=== PATIENT | female | born 1990 | race American Indian/Alaskan Native ===

== ENCOUNTER 2017-09-29 19:09 | Emergency (ER) | payer SELFPAY ==
[2017-09-29 20:12] VITALS: BP 107/73
[2017-09-29] MEDS ORDERED: NACL 0.9% 1000 ML 1,000 ML IV ONE (20:13)
[2017-09-29 20:41] LABS: Basophils % (Auto) 0.8 % (0.0-1.8); Eosinophils % (Auto) 0.8 % (0.0-4.3); Hematocrit 38.1 % (30.3-42.9); Hemoglobin 12.6 gm/dl (10.1-14.3); Lymphocytes # (Auto) 1.1 K/mm3 (1.2-5.4); Mean Corpuscular HGB Conc 33 % (30-34); Mean Corpuscular Hemoglobin 28 pg (28-32); Mean Corpuscular Volume 85 fl (79-97); Monocytes # (Auto) 0.3 K/mm3 (0.0-0.8); Monocytes % (Auto) 10.2 % (0.0-7.3); Platelet Count 322 K/mm3 (140-440); Red Blood Count 4.48 M/mm3 (3.65-5.03); Red Cell Distribution Width 13.3 % (13.2-15.2)
[2017-09-29 20:55] LABS: Alanine Aminotransferase 16 units/L (7-56); Albumin 4.4 g/dL (3.9-5); BUN/Creatinine Ratio 17; Blood Urea Nitrogen 10 mg/dL (7-17); Calcium 9.3 mg/dL (8.4-10.2); Hemolysis Index 14; Lipase 14 units/L (13-60)
[2017-09-29 23:32] LABS: Bilirubin,Urine NEG (Negative); Blood,Urine NEG (Negative); Color,Urine Amber (Yellow); Mucus,Urine 3+ /HPF
== END 2017-09-29 22:25 | disposition left against medical advice (07) ==
LOC: ED 19:09
DX: J11.2 Influenza due to unidentified influenza virus with gastrointestinal manifestations (principal); Z53.21 Procedure and treatment not carried out due to patient leaving prior to being seen by health care provider
CPT/HCPCS: 36415; 80053; 81001; 83690; 84703; 85025

== ENCOUNTER 2018-05-11 15:41 | Emergency (ER) | payer OTHER ==
--- NOTE | 2018-05-11 16:57 | Emergency Department Report ---
Blank Doc - Documentation Documentation: This is a 27-year-old female that presents with nausea and vomiting and diarrh ea. This initial assessment/diagnostic orders/clinical plan/treatment(s) is/are subject to change based on patient's health status, clinical progression and re- assessment by fellow clinical providers in the ED. Further treatment and workup at subsequent clinical providers discretion. Patient/guardians urged not to elope from the ED as their condition may be serious if not clinically assessed and managed. Initial orders include: 1- Patient sent to [facility] for further evaluation and treatment 2- labs
[2018-05-11 17:01] VITALS: BP 106/63
[2018-05-11] MEDS ORDERED: ZOFRAN ODT PO ONE (17:06)
[2018-05-11] MEDS ORDERED: ZOFRAN ODT ONE (17:09)
[2018-05-11 17:33] LABS: Hematocrit 36.6 % (30.3-42.9); Hemoglobin 12.3 gm/dl (10.1-14.3); Mean Corpuscular HGB Conc 34 % (30-34); Mean Corpuscular Volume 86 fl (79-97); Platelet Count 362 K/mm3 (140-440); Red Blood Count 4.28 M/mm3 (3.65-5.03); Red Cell Distribution Width 13.4 % (13.2-15.2)
[2018-05-11 17:45] LABS: Alanine Aminotransferase 27 units/L (7-56); Albumin 4.3 g/dL (3.9-5); BUN/Creatinine Ratio 24; Blood Urea Nitrogen 12 mg/dL (7-17); Calcium 8.8 mg/dL (8.4-10.2); Hemolysis Index 28
[2018-05-11 18:05] LABS: Basophils % (Manual) 0 % (0.0-1.8); Eosinophils % (Manual) 0 % (0.0-4.3); Platelet Estimate Consistent w Auto; RBC Morphology Normal; Total Cells Counted 100
--- NOTE | 2018-05-11 21:38 | Emergency Department Report ---
Vomiting/Diarrhea - HPI Chief Complaint: Nausea/Vomiting/Diarrhea Stated Complaint: VOMITING/DIARRHEA/DEHYDRATION Time Seen by Provider: 05/11/18 16:56 Duration: Today Severity: mild Nausea/Vomiting Severity: Mild Diarrhea Severity: Mild Pain Severity: None Symptoms: Yes Watery Diarrhea, Yes Able to Tolerate Fluids, Yes Family w/ Similar Symptoms, Yes Contacts w/ Similar Symptoms, No Bloody diarrhea, No Fever, No Recent Unusual Foods, No Recent Untreated Water, No Recent use of Antibiotics, No Rash, No Hematuria, No Recent URI Symptoms Other History: Pt is a 27 yo female who presents to the ED with c/o N/V/D that began this morning. She has contacts with several family members with the same sx. She denies any abdominal pain, urinary sx, or fever. The patient has been able to tolerate liquids. She was given zofran in triage and has had no further episodes of vomiting. ED Review of Systems ROS: Stated complaint: VOMITING/DIARRHEA/DEHYDRATION Other details as noted in HPI Comment: All other systems reviewed and negative ED Past Medical Hx - Past Medical History Previous Medical History?: Yes Additional medical history: anemia - Surgical History Past Surgical History?: Yes Hx Breast Surgery: Yes (benign tumor right breast removed) Additional Surgical History: prolapsed uterus - Social History Smoking Status: Current Every Day Smoker Substance Use Type: None - Medications Home Medications: Home Medications Medication Instructions Recorded Confirmed Last Taken Type Ondansetron [Zofran Odt] 4 mg PO Q8HR PRN #14 tab.rapdis 05/11/18 Unknown Rx Vomiting Diarrhea Exam - Exam General: Vital signs noted. No distress. Alert and acting appropriately. pt is non toxic appearing, appears hydrated, mucus membranes moist HEENT: Yes Moist Mucous Membranes, No Pharyngeal Erythema, No Pharyngeal Exudates, No Rhinorrhea, No Conjuctival Injection, No Frontal Tenderness, No Maxillary Tenderness Neck: No Adenopathy, No Rigidity Lungs: Yes Clear Lung Sounds, Yes Good Air Exchange, No Wheezes, No Stridor, No Cough, No Nasal Flaring, No Retractions, No Use of Accessory Muscles Heart exam: Regular: Yes, Murmur: No, Tachycardia: No Abdomen: Tenderness: No, Peritoneal Signs: No, Distention: No, Hyperactive Bowel sounds: No Skin exam: Rash: No, Edema: No, Normal turgor: Yes Neurologic: Alert and oriented, no deficits. Musculoskeletal: Unremarkable. ED Course Vital Signs 05/11/18 16:59 Temperature 98.2 F Pulse Rate 101 H Respiratory 16 Rate Blood Pressure 106/63 O2 Sat by Pulse 98 Oximetry ED Medical Decision Making - Lab Data Result diagrams: 05/11/18 17:18 05/11/18 17:18 Laboratory Results - last 24 hr 05/11/18 05/11/18 17:18 17:18 WBC 9.7 RBC 4.28 Hgb 12.3 Hct 36.6 MCV 86 MCH 29 MCHC 34 RDW 13.4 Plt Count 362 Add Manual Diff Complete Total Counted 100 Seg Neutrophils % Sandblast Carver Seg Neuts % (Manual) 91.0 H Band Neutrophils % 0 Lymphocytes % (Manual) 6.0 L Reactive Lymphs % (Man) 0 Monocytes % (Manual) 3.0 Eosinophils % (Manual) 0 Basophils % (Manual) 0 Metamyelocytes % 0 Myelocytes % 0 Promyelocytes % 0 Blast Cells % 0 Nucleated RBC % Not Reportable Seg Neutrophils # Man 8.8 H Band Neutrophils # 0.0 Lymphocytes # (Manual) 0.6 L Abs React Lymphs (Man) 0.0 Monocytes # (Manual) 0.3 Eosinophils # (Manual) 0.0 Basophils # (Manual) 0.0 Metamyelocytes # 0.0 Myelocytes # 0.0 Promyelocytes # 0.0 Blast Cells # 0.0 WBC Morphology Not Reportable Hypersegmented Neuts Not Reportable Hyposegmented Neuts Not Reportable Hypogranular Neuts Not Reportable Smudge Cells Not Reportable Toxic Granulation Not Reportable Toxic Vacuolation Not Reportable Dohle Bodies Not Reportable Pelger-Huet Anomaly Not Reportable Carla Rods Not Reportable Platelet Estimate Consistent w auto Clumped Platelets Not Reportable Plt Clumps, EDTA Not Reportable Large Platelets Not Reportable Giant Platelets Not Reportable Platelet Satelliting Not Reportable Plt Morphology Comment Not Reportable RBC Morphology Normal Dimorphic RBCs Not Reportable Polychromasia Not Reportable Hypochromasia Not Reportable Poikilocytosis Not Reportable Anisocytosis Not Reportable Microcytosis Not Reportable Macrocytosis Not Reportable Spherocytes Not Reportable Pappenheimer Bodies Not Reportable Sickle Cells Not Reportable Target Cells Not Reportable Tear Drop Cells Not Reportable Ovalocytes Not Reportable Helmet Cells Not Reportable Danielle-[place] Bodies Not Reportable [place] Rings Not Reportable Jillian Cells Not Reportable Bite Cells Not Reportable Crenated Cell Not Reportable Elliptocytes Not Reportable Acanthocytes (Spur) Not Reportable Rouleaux Not Reportable Hemoglobin C Crystals Not Reportable Schistocytes Not Reportable Malaria parasites Not Reportable Eusebio Bodies Not Reportable Hem Pathologist Commnt No Sodium 138 Potassium 3.6 Chloride 100.8 Carbon Dioxide 23 Anion Gap 18 BUN 12 Creatinine 0.5 L Estimated GFR > 60 BUN/Creatinine Ratio 24 Glucose 105 H Calcium 8.8 Total Bilirubin 0.80 AST 24 ALT 27 Alkaline Phosphatase 65 Total Protein 7.6 Albumin 4.3 Albumin/Globulin Ratio 1.3 Lipase 17 - Medical Decision Making Pt is a 27 yo female who presents to the ED with c/o V/D that began today. She has several family members with the same exact sx. No abd pain, no fever, no urinary sx. no abd TTP, does not appear dehydrated. She has been able to tolerate PO intake. Labs WNL. VSS. She was given zofran in triage and has had no further episodes of emesis. Will give pt zofran for N/V. Advised to continue to drink plenty of fluids. Follow up with primary care in the next 2-3 days. Return to the ED for new or worsening symptoms. - Differential Diagnosis Gastroenteritis, N/V/D, Viral syndrome Critical care attestation.: If time is entered above; I have spent that time in minutes in the direct care of this critically ill patient, excluding procedure time. ED Disposition Clinical Impression: Nausea vomiting and diarrhea Disposition: ELOPED Is pt being admited?: No Does the pt Need Aspirin: No Condition: Stable Instructions: Acute Nausea and Vomiting (ED) Additional Instructions: Follow up with primary care doctor in the next 2-3 days. Continue to drink plenty of fluids. Eat a bland diet. take zofran as needed for vomiting. Return to the emergency room for any new or worsening symptoms. Prescriptions: Ondansetron [Zofran Odt] 4 mg PO Q8HR PRN #14 tab.rapdis PRN Reason: Nausea And Vomiting [facility] JE[facility]Primary Care Provider[facility] - 2-3 Days Time of Disposition: 21:40 Print Language: ALBANIAN
== END 2018-05-11 21:50 | disposition left against medical advice (07) ==
LOC: ED 15:41
DX: R11.2 Nausea with vomiting, unspecified (principal); R19.7 Diarrhea, unspecified; F17.200 Nicotine dependence, unspecified, uncomplicated; Z86.2 Personal history of diseases of the blood and blood-forming organs and certain disorders involving the immune mechanism; Z88.5 Allergy status to narcotic agent; Z88.6 Allergy status to analgesic agent
CPT/HCPCS: 36415; 80053; 83690; 85007; 85025; 99283; Q0162

== ENCOUNTER 2020-10-17 13:03 | Outpatient (CLI) | payer MEDICAID ==
[2020-10-17 14:28] VITALS: BP 124/73
--- NOTE | 2020-10-17 15:36 | Ultrasound Report ---
ULTRASOUND OBSTETRIC LIMITED ULTRASOUND BIOPHYSICAL PROFILE INDICATION / CLINICAL INFORMATION: Decreased movements. COMPARISON: None available. FINDINGS: BREATHING MOVEMENT = 2 GROSS BODY MOVEMENT = 2 TONE = 2 QUALITATIVE AMNIOTIC FLUID VOLUME = 2 TOTAL BIOPHYSICAL SCORE = 8/8 AMNIOTIC FLUID INDEX (cm) = 10.0 PRESENTATION: Cephalic. HEART RATE (beats per minute): 154 ADDITIONAL FINDINGS: None. IMPRESSION: 1. Biophysical Score = 8/8 2. No significant abnormality of the pelvis. Signer Name: Devin Avila MD Signed: 10/17/2020 3:31 PM Workstation Name: [id number]
== END 2020-10-17 16:29 | disposition home or self-care (01) ==
LOC: TRG 13:03 → APU 13:05 → TRG 16:29
PROVIDERS: ATTEND Obstetrics & Gynecology
DX: O36.8130 Decreased fetal movements, third trimester, not applicable or unspecified (principal); Z3A.38 38 weeks gestation of pregnancy
CPT/HCPCS: 59025; 76815; 76819

== ENCOUNTER 2020-10-21 19:32 | Inpatient (IN) | payer MEDICAID ==
[2020-10-21] MEDS ORDERED: CARBOPROST TROMETHAMINE 250 MCG/1 ML INJ IM PRN (21:42)
[2020-10-21] MEDS ORDERED: BUTORPHANOL 2 MG/1 ML INJ IV PRN ×2 (21:42)
[2020-10-21] MEDS ORDERED: fentaNYL 100 MCG/2 ML INJ IV PRN (21:42)
[2020-10-21] MEDS ORDERED: METHYLERGONOVINE MALEATE 0.2 MG/ML VIAL IM PRN (21:42)
[2020-10-21] MEDS ORDERED: LOPERAMIDE 2 MG CAP PO PRN (21:42)
[2020-10-21] MEDS ORDERED: NalbUPHINE 10 MG/1 ML INJ IV PRN (21:42)
[2020-10-21] MEDS ORDERED: ACETAMINOPHEN 325 MG TAB PO PRN (21:42)
[2020-10-21] MEDS ORDERED: TERBUTALINE 1 MG/1 ML INJ SUB-Q PRN (21:42)
[2020-10-21] MEDS ORDERED: AMPICILLIN/NS 2 GM/100 ML 2 GM/100 ML BAG IV ONE (21:42)
[2020-10-21] MEDS ORDERED: OXYTOCIN 10 UNIT/1 ML INJ IM PRN (21:42)
[2020-10-21] MEDS ORDERED: MINERAL OIL 30 ML ORAL LIQD PO PRN (21:42)
[2020-10-21] MEDS ORDERED: LIDOCAINE (2%) 20 MG/1 ML VIAL 20 ML MDV INFILTRATI ONE (21:42)
[2020-10-21] MEDS ORDERED: ePHEDrine SULFATE 50 MG/1 ML INJ IV PRN (21:42)
[2020-10-21] MEDS ORDERED: miSOPROStol 200 MCG TAB PR PRN (21:42)
--- NOTE | 2020-10-21 21:47 | History and Physical Report ---
History of Present Illness Date of examination: 10/21/20 Chief complaint: Early labor with painful contractions History of present illness: 29-year-old -0-4-2 at 38-6/7 weeks presents in early labor with painful contractions. care at [facility]- no records available Surgical history positive for uterine inversion with hemorrhage in 2011 Past History Past Medical History: blood transfusion Past Surgical History: no surgical history Social history: no significant social history - Obstetrical History Expected Date of Delivery: 10/29/20 Actual Gestation: 38 Week(s) 6 Day(s) : 7 Para: 2 Spontaneous Abortions: 1 Induced : 3 Medications and Allergies Allergies Allergy/AdvReac Type Severity Reaction Status Date / Time acetaminophen [From Tylenol] Allergy Hives Verified 01/22/14 15:00 aspirin Allergy Hives Verified 01/22/14 15:00 ibuprofen [From Motrin] Allergy Hives Verified 01/22/14 14:59 pamabrom [From Midol] Allergy Hives Verified 01/22/14 15:00 Home Medications Medication Instructions Recorded Confirmed Last Taken Type Ondansetron [Zofran Odt] 4 mg PO Q8HR PRN #14 tab.rapdis 05/11/18 Unknown Rx Review of Systems All systems: negative (Painful contractions) - Vital Signs Vital signs: Vital Signs Pulse BP 88 122/84 10/21/20 20:09 10/21/20 20:09 Temp Pulse Resp BP Pulse Ox 98.5 F 85 18 122/84 99 10/21/20 20:12 10/21/20 21:29 10/21/20 20:12 10/21/20 20:12 10/21/20 21:29 - Physical Exam Breasts: Positive: deferred Cardiovascular: Regular rate Lungs: Positive: Clear to auscultation Abdomen: Positive: normal appearance, soft, normal bowel sounds Genitourinary (Female): Positive: normal external genitalia, normal perenium Vagina: Positive: normal moisture Uterus: Positive: enlarged Anus/Rectum: Positive: normal perianal skin Extremities: Positive: normal Deep Tendon Reflex Grade: Normal +2 - Obstetrical FHR: category 1 Cervical Dilatation: 2 Cervical Effacement Percentage: 80 station: -3 Uterine Contraction Pattern: Regular Results Result Diagrams: 10/21/20 21:55 All other labs normal. Assessment and Plan Admission CBC Type and screen Cross for 2 units PRBC on hold labs Pain meds as needed Continuous monitoring GBS protocol as indicated Maternal status reassuring Bola Newton MD
[2020-10-21] MEDS ORDERED: OXYTOCIN DRIP 30 UNITS/500 ML BAG IV SCH ×2 (22:00)
[2020-10-21 22:20] LABS: Hematocrit 31.3 % (30.3-42.9); Hemoglobin 10.4 gm/dl (10.1-14.3); Mean Corpuscular HGB Conc 33 % (30-34); Mean Corpuscular Volume 85 fl (79-97); Platelet Count 346 K/mm3 (140-440); Red Blood Count 3.67 M/mm3 (3.65-5.03); Red Cell Distribution Width 14.9 % (13.2-15.2)
[2020-10-21] MEDS: LACTATED RINGERS 1,000 ML IV SCH (22:49)
[2020-10-22] MEDS ORDERED: diphenhydrAMINE 50 MG/ML VIAL IV PRN (00:18)
[2020-10-22] MEDS ORDERED: ONDANSETRON 4 MG/2 ML INJ IV PRN ×2 (00:18→05:45)
[2020-10-22] MEDS ORDERED: NALOXONE 2 MG/2 ML INJ IV PRN (00:18)
[2020-10-22] MEDS ORDERED: ePHEDrine SULFATE 50 MG/1 ML INJ IV PRN (00:18)
[2020-10-22] MEDS ORDERED: NalbUPHINE 10 MG/1 ML INJ IV PRN (00:18)
[2020-10-22] MEDS ORDERED: LACTATED RINGERS 250 ML IV SOLN IV ONE (00:18)
--- NOTE | 2020-10-22 00:45 | Anesthesia Consultation ---
Anesthesia Consult and Med Hx Date of service: 10/22/20 - Airway Anesthetic Teeth Evaluation: Good ROM Head & Neck: Adequate Mental/Hyoid Distance: Adequate Mallampati Class: Class II Intubation Access Assessment: Probably Good - Pulmonary Exam CTA: Yes - Cardiac Exam Cardiac Exam: RRR - Pre-Operative Health Status ASA Pre-Surgery Classification: ASA2 Proposed Anesthetic Plan: Epidural - Pulmonary Hx Smoking: No Hx Asthma: No COPD: No Hx Pneumonia: No Hx Sleep Apnea: No - Cardiovascular System Hx Hypertension: No Hx Heart Attack/AMI: No Hx Angina: No - Central Nervous System Hx Seizures: No Hx Psychiatric Problems: No - Gastrointestinal Hx Gastroesophageal Reflux Disease: No - Endocrine Hx Renal Disease: No Hx End Stage Renal Disease: No Hx Liver Disease: No Hx Insulin Dependent Diabetes: No Hx Non-Insulin Dependent Diabetes: No Hx Hypothyroidism: No Hx Hyperthyroidism: No - Hematic Hx Anemia: Yes Hx Sickle Cell Disease: No - Other Systems Hx Alcohol Use: No
--- NOTE | 2020-10-22 00:46 | Progress Note ---
Labor Epidural - Labor Epidural Start Time: 00:25 Stop Time: 00:40 Performed by:: HI CARLOS Procedure: Patient is requesting epidural for labor and pain. H&P, labs were reviewed. Patient IDed, H&P reviewed, all questions and concerns were answered, and consent was signed. Timeout was performed at bedside. Patient in sitting position. Sterile prep and drape was performed. 3ml of 1% lidocaine skin wheal at L[3]- L [4]. 18-gauge [employer] epidural needle was advanced to loss of resistance with air technique 7cm. Negative CSF negative blood. Epidural catheter advanced to [12] centimeters. [negative] Aspiration [negative] test dose. Sterile dressing applied. Patient tolerated procedure.
[2020-10-22] MEDS ORDERED: fentaNYL-BUPIV 2 MCG/ML-0.125% 200 MCG/100 ML BAG EPIDURAL SCH (01:00)
[2020-10-22] MEDS ORDERED: AMPICILLIN/NS 2 GM/100 ML 2 GM/100 ML BAG IV ONE (01:05)
[2020-10-22 01:42] LABS: Hepatitis C Virus Antibody Non-Reactive (NonReactive)
[2020-10-22] MEDS ORDERED: AMPICILLIN/NS 1 GM/50 ML 1 GM/50 ML BAG IV SCH (05:00)
[2020-10-22] MEDS ORDERED: PROMETHAZINE 25 MG TAB PO PRN (05:45)
[2020-10-22] MEDS ORDERED: diphenhydrAMINE 25 MG CAP PO PRN (05:45)
[2020-10-22] MEDS ORDERED: ACETAMINOPHEN 325 MG TAB PO PRN (05:45)
[2020-10-22] MEDS ORDERED: WITCH HAZEL/ GLYCERIN PAD TP PRN (05:45)
[2020-10-22] MEDS ORDERED: PROMETHAZINE 25 MG RECT SUPP PR PRN (05:45)
[2020-10-22] MEDS ORDERED: MAGNESIUM HYDROXIDE (MOM) ORAL LIQD UDC PO PRN (05:45)
[2020-10-22] MEDS ORDERED: HYDROcodone/ACETAMINOPHEN 5-325 MG TAB PO PRN (05:45)
[2020-10-22] MEDS ORDERED: LANOLIN/ZINC/DIMETHICONE (LANSINOH) 7 GM TP PRN (05:45)
--- NOTE | 2020-10-22 05:45 | Procedure Note ---
OB Delivery Note - Delivery Date of Delivery: 10/22/20 Surgeon: KENNETH MEZA Estimated blood loss: 200cc - Vaginal Delivery position: OA Intrapartum events: none Delivery induction: none Delivery monitor: external FHT, external uterine Route of delivery: Delivery placenta: spontaneous Delivery cord: 3 umbilical vessels Episiotomy: none Delivery laceration: none Anesthesia: none Delivery comments: Patient pushed to deliver a viable male over an intact perineum with weight 2450gms and 8/9. Position MAC, loose body cord reduced at delivery. Spontaneous cry at delivery. Delivery of the anterior shoulder atraumatic, remainder of delivery uncomplicated. Cord clamped cut and baby handed to waiting [facility] team. Cord blood obtained. Spontaneous delivery of an intact placenta with three-vessel cord. Inspection of the perineum cervix and vagina revealed no lacerations. Firm fundus, EBL 200ml. All sponge needle and instrument counts correct x2. Mom and baby stable to . Bola Meza MD
[2020-10-22] MEDS ORDERED: IBUPROFEN 600 MG TAB PO SCH (06:00)
[2020-10-22] MEDS: oxyCODONE 5 MG TAB PO PRN ×3 (11:59→22:25)
--- NOTE | 2020-10-22 16:24 | Post Anesthesia Evaluation ---
- Post Anesthesia Evaluation Patient Participated: Yes Airway Patent: Yes Stable Respiratory Function: Yes Nausea/Vomiting: No Temp > 96.8F: Yes Pain Manageable: Yes Adequeate Hydration: Yes Anesthesia Complications: No Block Receding Appropriately: Yes Patient on Ventilator: No
[2020-10-22 16:33] LABS: Hematocrit 29.2 % (30.3-42.9); Hemoglobin 10.2 gm/dl (10.1-14.3)
--- NOTE | 2020-10-22 20:28 | Event Note ---
Date: 10/22/20 Patient reports severe afterbirth pains. She reports small amount of lochia and no large clots. She also reports urinary frequency; denies dysuria. Reports lower back cramping. Denies fever, chills, flank pain, or malaise. CBC, CMP, urinalysis, urine culture, US to check for accessory lobe ordered. Rocephin 1 gram IV every 24 hours ordered. Patient denies allergy to Motrin or aspirin so this was corrected on her allergy list. She states he has taken Motrin in the past multiple times without any difficulty or reaction. Motrin and Oxycodone or dered.
[2020-10-22 20:39] LABS: Basophils % (Auto) 0.2 % (0.0-1.8); Eosinophils # (Auto) 0.1 K/mm3 (0.0-0.4); Eosinophils % (Auto) 0.7 % (0.0-4.3); Hematocrit 32.8 % (30.3-42.9); Hemoglobin 10.8 gm/dl (10.1-14.3); Lymphocytes # (Auto) 2.6 K/mm3 (1.2-5.4); Lymphocytes % (Auto) 18.2 % (13.4-35.0); Mean Corpuscular HGB Conc 33 % (30-34); Mean Corpuscular Volume 87 fl (79-97); Monocytes # (Auto) 1.5 K/mm3 (0.0-0.8); Monocytes % (Auto) 10.6 % (0.0-7.3); Platelet Count 324 K/mm3 (140-440); Red Blood Count 3.78 M/mm3 (3.65-5.03); Red Cell Distribution Width 14.9 % (13.2-15.2)
[2020-10-22] MEDS: LACTATED RINGERS 1,000 ML IV SCH (20:45)
[2020-10-22] MEDS: FERROUS SULFATE 325 MG TAB PO SCH (20:45)
[2020-10-22] MEDS: IBUPROFEN 800 MG TAB PO PRN (20:45)
[2020-10-22 20:58] LABS: Alanine Aminotransferase 49 units/L (7-56); Albumin 2.9 g/dL (3.9-5); Blood Urea Nitrogen 9 mg/dL (7-17); Hemolysis Index 7
--- NOTE | 2020-10-22 20:58 | Ultrasound Report ---
ULTRASOUND PELVIS LIMITED INDICATION / CLINICAL INFORMATION: check for accessory placental lobe. Evaluate for retained products of conception. COMPARISON: Ultrasound dated 10/17/20 FINDINGS: Uterus is enlarged with appearance. There is a small hypoechoic/heterogeneous area in the endometrial cavity in the fundus of the uterus measuring about 1.9 cm in thickness with mild vascularity on color Doppler imaging. IMPRESSION: 1. Thickened endometrial complex in a uterus. It is difficult to distinguish a uterus containing clots from retained products of conception. Clinical correlation is recommended. Signer Name: Neri Oleary MD Signed: 10/22/2020 8:53 PM Workstation Name: [id number]
[2020-10-22 21:04] LABS: BUN/Creatinine Ratio 18
[2020-10-22 21:17] LABS: Bacteria,Urine 1+ /HPF (Negative); Bilirubin,Urine NEG (Negative); Blood,Urine LG (Negative); Color,Urine Straw (Yellow); Mucus,Urine FEW /HPF
[2020-10-22 21:19] LABS: RBC,Urine > 182.0 /HPF (0.0-6.0)
[2020-10-22] MEDS: cefTRIAXone/NS 1 GM/50 ML 1 GM/50 ML BAG IV SCH (21:29)
[2020-10-22] MEDS: METHYLERGONOVINE 0.2 MG TABLET PO SCH (22:25)
[2020-10-23] MEDS: oxyCODONE 5 MG TAB PO PRN ×2 (04:04→10:49)
[2020-10-23] MEDS: IBUPROFEN 800 MG TAB PO PRN ×4 (06:04→23:58)
[2020-10-23] MEDS: METHYLERGONOVINE 0.2 MG TABLET PO SCH ×3 (06:04→22:43)
[2020-10-23] MEDS: FERROUS SULFATE 325 MG TAB PO SCH (09:00)
--- NOTE | 2020-10-23 10:31 | Progress Note ---
Assessment and Plan A: S/P C/O backache P: Continue routine pp care Anesthesia consult re back pain D/C home tomm if stable Subjective - Subjective Date of service: 10/23/20 Principal diagnosis: s/p Patient reports: appetite normal, voiding normally, pain well controlled, ambulating normally, other (c/o back pain and occ cramping which is relieved by pain med ) : doing well, bottle feeding Objective - Vital Signs Latest vital signs: Vital Signs Temp Pulse Resp BP BP Pulse Ox Pulse Ox 10/23/20 08:10 97.8 F 71 18 120/84 96 10/23/20 08:00 100 10/23/20 00:00 98.4 F 68 16 104/79 10/22/20 21:09 98 10/22/20 20:23 98.0 F 103 H 18 131/77 96 10/22/20 17:16 16 10/22/20 16:17 98.0 F 98 H 20 124/75 97 10/22/20 11:59 16 10/22/20 11:14 97.9 F 85 20 133/86 99 10/22/20 10:30 98 Intake and Output 10/22/20 10/23/20 10/23/20 22:59 06:59 14:59 Intake Total 360 120 Balance 360 120 Intake: Oral 360 120 Other: Total, Intake Amount 360 120 # Voids Void 1 1 1 - Exam Breasts: Present: normal Abdomen: Present: normal appearance, soft, normal bowel sounds Vulva: both: normal Uterus: Present: normal, firm, fundal height below umbilicus Extremities: Present: normal - Labs Labs: Abnormal lab results 10/22/20 10/22/20 10/22/20 Range/Units 16:17 20:04 20:04 WBC 14.3 H (4.5-11.0) K/mm3 Hct 29.2 L (30.3-42.9) % Story % (Auto) 10.6 H (0.0-7.3) % Story # (Auto) 1.5 H (0.0-0.8) K/mm3 Seg Neutrophils % 70.3 H (40.0-70.0) % Seg Neutrophils # 10.1 H (1.8-7.7) K/mm3 Sodium 135 L (137-145) mmol/L Carbon Dioxide 20 L (22-30) mmol/L Creatinine 0.5 L (0.6-1.2) mg/dL Albumin 2.9 L (3.9-5) g/dL
[2020-10-23] MEDS: DOCUSATE SODIUM 100 MG CAP PO SCH (12:20)
[2020-10-23] MEDS: cefTRIAXone/NS 1 GM/50 ML 1 GM/50 ML BAG IV SCH (20:56)
[2020-10-23 22:22] LABS: Hematocrit 34.4 % (30.3-42.9); Hemoglobin 11.1 gm/dl (10.1-14.3); Mean Corpuscular HGB Conc 32 % (30-34); Mean Corpuscular Volume 89 fl (79-97); Platelet Count 336 K/mm3 (140-440); Red Blood Count 3.88 M/mm3 (3.65-5.03)
[2020-10-23] MEDS: AMOXICILLIN/K CLAV 875/125MG TAB PO SCH (23:31)
[2020-10-24] MEDS: oxyCODONE 5 MG TAB PO PRN (08:47)
[2020-10-24] MEDS: METHYLERGONOVINE 0.2 MG TABLET PO SCH ×2 (08:47→14:52)
--- NOTE | 2020-10-24 09:23 | Progress Note ---
Assessment and Plan A: S/P Suspected endometritis Elevated wbc P: D/C home Augmentin bid x [address] Casarez Subjective - Subjective Date of service: 10/24/20 Principal diagnosis: s/p Patient reports: appetite normal, voiding normally, pain well controlled, flatus, ambulating normally, other (denies complaints and ready to go home) [place]: doing well, bottle feeding Objective - Vital Signs Latest vital signs: Vital Signs Temp Pulse Resp BP BP Pulse Ox Pulse Ox 10/24/20 08:45 98.0 F 93 H 20 113/67 95 10/24/20 00:00 98.6 F 66 18 102/77 10/23/20 23:58 20 10/23/20 21:40 98.0 F 93 H 18 115/60 98 10/23/20 19:50 98 10/23/20 16:03 98.3 F 96 H 18 119/75 97 Intake and Output 10/23/20 10/24/20 10/24/20 22:59 06:59 14:59 Intake Total 840 200 Balance 840 200 Intake: Oral 240 200 Intake, Free Water 600 Other: Total, Intake Amount 240 200 # Voids Void 1 1 - Exam Breasts: Present: normal Abdomen: Present: normal appearance, soft, normal bowel sounds Vulva: both: normal Uterus: Present: normal, firm, fundal height below umbilicus Extremities: Present: normal - Labs Labs: Abnormal lab results 10/23/20 Range/Units 21:47 WBC 12.3 H (4.5-11.0) K/mm3
--- NOTE | 2020-10-24 09:30 | Discharge Summary ---
Providers - Providers Date of Admission: 10/21/20 22:55 Date of discharge: 10/24/20 Attending physician: KENNETH MEZA MD Primary care physician: KENNETH MEZA MD Hospitalization Reason for admission: active labor, IUP at term Delivery: Episiotomy: none Laceration: none Other procedures: other (abt for suspected endometritis) complications: other (abt for suspected endometritis) Discharge diagnosis: IUP at term delivered [place] baby: male Hospital course: Pt presented to the hospital in active labor and had a . Pt was treated with abt for suspected endometritis and was d/c 'd home in stable condition. See h&p, delivery summary and pp notes. Condition at discharge: Stable Disposition: 01 HOME / SELF CARE / HOMELESS Plan - Discharge Medications Prescriptions: Amoxicillin/K Clav Tab [Augmentin 875MG TAB] 1 each PO Q12HR #10 tablet Ibuprofen [Motrin 800 MG tab] 800 mg PO Q8H PRN #30 tablet PRN Reason: Pain, Mild (1-3) - Provider Discharge Summary Additional instructions: [] Smoking cessation referral if applicable(refer to patient education folder for contact #) [] Refer to [facility] Booklet Call your doctor immediately for: * Fever > 100.5 * Heavy vaginal bleeding ( >1 pad per hour) * Severe persistent headache * Shortness of breath * Reddened, hot, painful area to leg or breast * Drainage or odor from incision. * Keep incision clean and dry at all times and follow doctor's instructions regarding bathing/showering - Follow up plan Follow up: KENNETH MEZA MD [Primary Care Provider] - 6 Weeks
[2020-10-24] MEDS: DOCUSATE SODIUM 100 MG CAP PO SCH (09:53)
[2020-10-24] MEDS: AMOXICILLIN/K CLAV 875/125MG TAB PO SCH (09:53)
[2020-10-24] MEDS: FERROUS SULFATE 325 MG TAB PO SCH (09:53)
[2020-10-24 17:16] VITALS: BP 116/65
== END 2020-10-24 19:00 | disposition home or self-care (01) | DRG 774 ==
LOC: TRG 19:32 → APU 19:34 → TRG 21:42 → UNDOADMIN 21:42 → APU 21:42 → LD 22:55 → OB 10-22 09:50
PROVIDERS: ADMIT Obstetrics & Gynecology; ATTEND Obstetrics & Gynecology
PROC: 10E0XZZ Delivery of Products of Conception, External Approach (ICD-10-PCS; principal; 2020-10-22)
PROC: 3E0R3BZ Introduction of Anesthetic Agent into Spinal Canal, Percutaneous Approach (ICD-10-PCS; 2020-10-22)
PROC: 00HU33Z Insertion of Infusion Device into Spinal Canal, Percutaneous Approach (ICD-10-PCS; 2020-10-22)
DX: O99.02 Anemia complicating childbirth (principal); O86.12 Endometritis following delivery; Z37.0 Single live birth; Z3A.38 38 weeks gestation of pregnancy; Z20.822 Contact with and (suspected) exposure to COVID-19; Z88.6 Allergy status to analgesic agent; D64.9 Anemia, unspecified; O90.89 Other complications of the puerperium, not elsewhere classified; M54.9 Dorsalgia, unspecified; O69.89X0 Labor and delivery complicated by other cord complications, not applicable or unspecified; D72.829 Elevated white blood cell count, unspecified; O99.13 Other diseases of the blood and blood-forming organs and certain disorders involving the immune mechanism complicating the puerperium
CPT/HCPCS: 36415; 59025; 76857; 80053; 81001; 85014; 85018; 85025; 85027; 86592; 86706; 86762; 86803; 86850; 86900; 86901; 87086; 87806; G0378; J0290; J0696; J2300; J2590; J3010; J7120; U0003